=== PATIENT | female | born 1975 | race Caucasian/White ===

== ENCOUNTER 2018-01-26 20:52 | Inpatient (IN) | payer OTHER ==
[~2018-01-26] VITALS: Ht 162.6 cm; Wt 49.4 kg
[2018-01-26 20:56] VITALS: BP 185/98
[2018-01-26 21:25] LABS: ABSOLUTE BASOPHILS 0.1 thou/uL (0.0-0.2); ABSOLUTE EOSINOPHILS 0.1 thou/uL (0.0-0.7); ABSOLUTE LYMPHOCYTES 4.1 thou/uL (0.8-5.3); ABSOLUTE MONOCYTES 0.7 thou/uL (0.0-1.2); ABSOLUTE NEUTROPHILS 7.2 thou/uL (1.6-8.1); EOSINOPHILS 0.8 %; HEMATOCRIT 42.4 % (37.0-47.0); HEMOGLOBIN 14.8 gm/dL (12.0-15.0); LYMPHOCYTES 33.6 %; MCH 29.7 pg (26.0-34.0); MCHC 34.8 g/dL (28.0-37.0); MCV 85.4 fL (80.0-100.0); MONOCYTES 5.6 %; MPV 8.5 fl. (7.2-11.1); NUCLEATED RBCS 0 /100WBC; PLATELET COUNT* 300 thou/uL (150-400); RBC 4.97 mil/uL (4.20-5.00); RDW-CV 13.4 % (10.5-14.5); WBC 12.1 thou/uL (4.0-11.0)
[2018-01-26 21:35] LABS: ANION GAP 7 mmol/L (7-16); BUN 10 mg/dL (7-18); CALCIUM 9.4 mg/dL (8.5-10.1); CHLORIDE 101 mmol/L (98-107); CO2 27 mmol/L (21-32); GLUCOSE 183 mg/dL (70-99); SODIUM 135 mmol/L (136-145)
[2018-01-26 21:42] LABS: ALBUMIN 3.3 g/dL (3.4-5.0); ALKALINE PHOSPHATASE 136 U/L (46-116); LIPASE 164 U/L (73-393); SGOT 21 U/L (15-37); SGPT 20 U/L (30-65); TOTAL BILIRUBIN 0.2 mg/dL (<0.1-1.0); TOTAL PROTEIN 7.5 g/dL (6.4-8.2); TROPONIN-I LEVEL <0.06 ng/mL (<0.06)
[2018-01-26 22:17] LABS: URINE BILIRUBIN NEGATIVE (Negative); URINE BLOOD NEGATIVE (Negative); URINE CLARITY CLEAR; URINE COLOR YELLOW; URINE GLUCOSE-RANDOM NEGATIVE (Negative); URINE KETONES NEGATIVE (Negative); URINE LEUKOCYTES-REFLEX NEGATIVE (Negative); URINE NITRITE-REFLEX NEGATIVE (Negative); URINE PROTEIN NEGATIVE (Negative); URINE SPECIFIC GRAVITY <= 1.005 (1.005-1.030); URINE UROBILINOGEN 0.2 E.U./dl (0.2-1.0)
[2018-01-27 01:20] VITALS: BP 152/65
[2018-01-27 01:24] VITALS: BP 139/88
[2018-01-27 04:00] VITALS: BP 134/68
[2018-01-27 08:29] VITALS: BP 149/78
[2018-01-27 08:56] LABS: ABSOLUTE EOSINOPHILS 0.1 thou/uL (0.0-0.7); ABSOLUTE LYMPHOCYTES 2.6 thou/uL (0.8-5.3); ABSOLUTE MONOCYTES 0.5 thou/uL (0.0-1.2); ABSOLUTE NEUTROPHILS 4.3 thou/uL (1.6-8.1); BASOPHILS 0.5 %; EOSINOPHILS 0.8 %; HEMATOCRIT 37.2 % (37.0-47.0); LYMPHOCYTES 34.8 %; MCH 29.2 pg (26.0-34.0); MCHC 33.6 g/dL (28.0-37.0); MONOCYTES 6.6 %; MPV 8.9 fl. (7.2-11.1); NUCLEATED RBCS 0 /100WBC; PLATELET COUNT* 230 thou/uL (150-400); POLYS 57.3 %; RBC 4.27 mil/uL (4.20-5.00); RDW-CV 13.1 % (10.5-14.5); WBC 7.5 thou/uL (4.0-11.0)
[2018-01-27 08:58] LABS: HEMOGLOBIN 12.5 gm/dL (12.0-15.0)
[2018-01-27] MEDS ORDERED: PANTOPRAZOLE SO40 M1 PO (10:38)
[2018-01-27 10:54] VITALS: BP 149/78
[2018-01-27 11:58] VITALS: BP 151/74
--- NOTE | 2018-01-27 12:05 | EKG ---
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
--- NOTE | 2018-01-27 12:06 | EKG ---
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
== END 2018-01-27 12:59 | disposition home or self-care (01) | DRG 866 ==
LOC: M.ERS 20:52 → M.TBA-ER 01-27 00:51 → M.2W 01-27 01:17
PROVIDERS: Emergency Medicine Emergency Medical Services; Internal Medicine; ADMIT Internal Medicine
DX: B34.9 Viral infection, unspecified (principal); R65.10 Systemic inflammatory response syndrome (SIRS) of non-infectious origin without acute organ dysfunction; K29.70 Gastritis, unspecified, without bleeding; F12.10 Cannabis abuse, uncomplicated; R00.0 Tachycardia, unspecified; R74.0 Nonspecific elevation of levels of transaminase and lactic acid dehydrogenase [LDH]; Z88.0 Allergy status to penicillin; Z88.8 Allergy status to other drugs, medicaments and biological substances; Z79.899 Other long term (current) drug therapy

== ENCOUNTER 2020-02-14 20:54 | Emergency (ER) | payer OTHER ==
[~2020-02-14] VITALS: Ht 165.1 cm; Wt 103.0 kg
[~2020-02-14 20:54] MED LIST: PANTOPRAZOLE SO40 M1 PO
[2020-02-14] MEDS ORDERED: WELLBUTRIN SR150 M1 PO (21:13)
[2020-02-14] MEDS ORDERED: ZESTRIL5 MG (21:13)
[2020-02-14] MEDS ORDERED: LIPITOR10 MG PO (21:13)
[2020-02-14] MEDS ORDERED: GLIPIZIDE 10 MG10 MG PO (21:13)
[2020-02-14] MEDS ORDERED: LEXAPRO 10 MG T10 M2 PO (21:16)
[2020-02-14 23:08] VITALS: BP 147/86
== END 2020-02-14 23:11 | disposition home or self-care (01) ==
LOC: M.ERS 20:54
DX: S51.811A Laceration without foreign body of right forearm, initial encounter (principal); E11.9 Type 2 diabetes mellitus without complications; Z88.0 Allergy status to penicillin; Z88.8 Allergy status to other drugs, medicaments and biological substances; W25.XXXA Contact with sharp glass, initial encounter; Y93.89 Activity, other specified; Y92.89 Other specified places as the place of occurrence of the external cause; Y99.8 Other external cause status